=== PATIENT | male | born 1960 | race Caucasian/White ===

== ENCOUNTER 2024-12-02 09:06 | Outpatient (CLI) | payer OTHER, MEDICARE, SELFPAY ==
[2024-12-02 19:28] LABS: Alanine Aminotransferase 25 U/L (6-50); Albumin Level 4.6 g/dL (3.5-5.1); Alkaline Phosphatase 119 U/L (38-126); Anion Gap 5 mmol/L (4-12); Aspartate Amino Transferase 56 U/L (17-59); Bilirubin,Total 0.7 mg/dL (0.2-1.3); Blood Urea Nitrogen 13 mg/dL (9-20); Calcium 9.9 mg/dL (8.4-10.2); Carbon Dioxide 24 mmol/L (22-30); Chloride 106 mmol/L (98-107); Cholesterol 214 mg/dL (0-200); Estimated Glomerular Filt Rate > 60; Glucose 104 mg/dL (65-110); HDL Direct 45 mg/dL; Potassium 3.9 mmol/L (3.4-5.0); Sodium 135 mmol/L (137-145); Total Protein 8.2 g/dL (6.3-8.2); Triglycerides 232 mg/dL (<150)
[2024-12-02 19:45] LABS: MALB Creatinine Ratio 14.0 mg/g (0-30)
[2024-12-02 19:48] LABS: Hemoglobin A1C 5.8 % (<5.7)
[2024-12-02 20:03] LABS: Prostate Specific Antigen 0.6 ng/mL (< OR = 4.0); Thyroid Stimulating Hormone 6.450 uIU/mL (0.465-4.680)
== END 2024-12-02 09:07 | disposition home or self-care (01) ==
PROVIDERS: PCP Nurse Practitioner Adult Health; Visit Provider Nurse Practitioner Adult Health
DX: Z12.5 Encounter for screening for malignant neoplasm of prostate (principal); E11.9 Type 2 diabetes mellitus without complications; E07.9 Disorder of thyroid, unspecified
CPT/HCPCS: 36415; 80053; 80061; 82043; 82565; 83036; 84153; 84443; G0103

== ENCOUNTER 2025-01-17 08:52 | Outpatient (CLI) | payer OTHER, MEDICARE, SELFPAY ==
[2025-01-17 19:11] LABS: Thyroid Stimulating Hormone 0.085 uIU/mL (0.465-4.680)
== END 2025-01-17 08:53 | disposition home or self-care (01) ==
LOC: ANHBWCLAB 08:55
PROVIDERS: PCP Nurse Practitioner Adult Health; Visit Provider Nurse Practitioner Adult Health
DX: E07.9 Disorder of thyroid, unspecified (principal)
CPT/HCPCS: 36415; 84443

== ENCOUNTER 2025-03-15 08:34 | Outpatient (CLI) | payer OTHER, SELFPAY ==
--- OUTSIDE RECORDS SUMMARY | 2025-03-15 08:50 | XMS_ITS | Clinical Summary ---
Author Organization [facility] Address [facility] [place] [address] Care Team Providers Care Seedling Sorter Name Role Phone Tea Serrato NP Primary Care Provider [phone] Romulo Spears MD Unavailable [phone] Allergies Active Allergy Reactions Criticality Noted Date Comments Iodine Swelling 04/18/2016 Medications levothyroxine 200 MCG tablet Take 200 mcg by mouth daily. 5 04/03/2016 Active pravastatin 40 MG tablet Take 1 tablet (40 mg total) by mouth daily. 04/18/2016 Active Doxycycline Hyclate (DORYX) 200 MG Tab EC Take 1 tablet by mouth daily. 04/18/2016 Active Active Problems Problem Noted Date Diagnosed Date Cardiac murmur 04/01/2016 Overview (04/16/2016): new Hyperlipidemia Family History Medical History Relation Comments Heart Attack Mother Family history of ischemic h eart disease and other diseases of the circulatory system. 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 Not on file Not on file Last Filed Vital Signs Vital Sign Reading Time Taken Comments Blood Pressure 150/90 04/18/2016 11:28 AM DISK RECORDIST Pulse 86 04/18/2016 11:28 AM DISK RECORDIST Temperature - - Respiratory Rate - - Oxygen Saturation - - Inhaled Oxygen Concentration - - Weight 95.3 kg (210 lb) 04/18/2016 11:28 AM DISK RECORDIST Height 176.5 cm (5' 9.5) 04/18/2016 11:28 AM CS T Body Mass Index 30.57 04/18/2016 11:28 AM DISK RECORDIST Plan of Treatment Health Maintenance Due Date Last Done Comments Colorectal Cancer Screening Colonoscopy (10 Years) 1959 Hepatitis C 1977 DTaP, Tdap and Td Vaccines ( 1 - Tdap) 1978 Pneumococcal Vaccine: 50+ Ye ars (1 of 1 - PCV) 2009 Zoster Vaccines (1 of 2) 2009 COVID-19 Vaccine (1 - 2024-2 6 season) 2025 Influenza Adult (#1) 2025 RSV Immunization or 60+ Years (1 - 1-dose 75+ series) 2034 Hepatitis A Vaccines Aged Out No long er eligible based on patient's age to complete this topic Meningococcal B Vaccine Aged Out No l onger eligible based on patient's age to complete this topic Meningococcal Vaccine Aged Out No lucila julian eligible based on patient's age to complete this topic RSV Immunizations Under 20 Months Aged Out No longer eligible based on patient's age to complete this topic Insurance [facility] Care Teams Seedling Sorter Relationship Specialty Start Date End Date Tea Serrato NP [address] [place] [address] PCP - General NURSE PRACTITIONER 10/04/15 Roumlo Spears MD [facility]. [address] [address] [place] Bookstore Clerk CARDIOVASCULAR DISEASE 10/04/15
--- OUTSIDE RECORDS SUMMARY | 2025-03-15 08:50 | XMS_ITS | Encounter Summary ---
Author Organization [facility] Address [facility] [place] [address] Care Team Providers Care Carbon Setter Name Role Phone Tea Serrato NP Primary Care Provider [phone] Romulo Spears MD Unavailable [phone] Encounter Details Date Type Department Care Team (Late st Contact Info) Description 04/22/2016 Abstract [facility] AT [address] [address] [place] Social History Tobacco Use Types Packs/Day Years Used Date Smoking Tobacco: Never Smokeless Tobacco: Never Alcohol Use Standard Drinks/Week Comments Yes 0 (1 standard drink = 0.6 oz pur e alcohol) rare Sex and Gender Information Value Date Recorded Sex Assigned at Not on file Legal Sex Male 9:54 AM CASKET UPHOLSTERER Gender Identity Not on file Sexual Orientation Not on file 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 Not on file Not on file documented as of this encounter Plan of Treatment Not on file documented as of this encounter Procedures Procedure Name Priority Date/Time Associated Diagnosis Comments BASIC METABOLIC PANEL Routine 04/01/2016 LIPID PANEL Routine 04/01/2016 HEPATIC FUNCTION PANEL Routine 04/01/2016 THYROXINE, FREE (FT4) Routine 04/01/2016 THYROID STIM HORMONE TSH Routine 04/01/2016 documented in this encounter Results * HEPATIC FUNCTION PANEL (04/01/2016) ALBUMIN S/P/B 4.4 3.5 - 5.0 ALKALINE PHOSPHATASE S/P/B 108 ALT 27 AST 26 BILIRUBIN TOTAL S/P/B 0.9 TOTAL PROTEIN S/P/B 7.3 GLOBULIN 2.9 04/01/2016 us Doc [facility] Final Result * BASIC METABOLIC PANEL (04/01/2016) SODIUM S/P/B 144 POTASSIUM S/P/B 4.0 CO2 27 CHLORIDE S/P/B 105 GLUCOSE 100 CALCIUM S/P/B 9.7 BUN 16 CREATININE S/P/B 0.86 EGFR NON-AFR. AMER. >60 04/01/2016 us Doc [facility] Final Result * THYROXINE, FREE (FT4) (04/01/2016) Pathologist [facility] FREE T4 0.96 04/01/2016 us Doc [facility] Final Result * THYROID STIM HORMONE, TSH (04/01/2016) Pathologist [facility] TSH 8.060 04/01/2016 us Doc [facility] Final Result * LIPID PANEL (04/01/2016) Pathologist [facility] CHOLESTEROL 223 HDL 57 TRIGLYCERIDES 180 LDL (CALCULATED) 130 04/01/2016 us Doc [facility] Edited Resul t - Final documented in this encounter Visit Diagnoses Not on filedocumented in this encounter Care Teams Carbon Setter Relationship Specialty Start Date End Date Tea Serrato NP [address] [place] [address] PCP - General NURSE PRACTITIONER 10/04/15 Romulo Spears MD [facility]. [address] [address] [place] Proof Press Operator CARDIOVASCULAR DISEASE 10/04/15 documented as of this encounter
--- OUTSIDE RECORDS SUMMARY | 2025-03-15 08:50 | XMS_ITS | Encounter Summary ---
Author Organization [facility] Address [address] [place] [address] Care Team Providers Care Rn Spine Name Role Phone Unavailable Primary Care Provider Unavailabl e Encounter Details Date Type Department Care Team (Late st Contact Info) Description 02/02/2025 Lab Requisition [facility] - DermPath Lab [address] [facility] [place] [phone] Antonia Vu MD [address] [facility] [address] [place] [address] Neoplasm of uncertain behavior of skin Social History Tobacco Use Types Packs/Day Years Used Date Smoking Tobacco: Never Assessed Sex and Gender Information Value Date Recorded Sex Assigned at Not on file Legal Sex Male 4:07 PM CDT Gender Identity Not on file Sexual Orientation Not on file documented as of this encounter Plan of Treatment Not on file documented as of this encounter Procedures Procedure Name Priority Date/Time Associated Diagnosis Comments DERMATOPATHOLOGY Routine 02/02/2025 12:3 0 PM CDT Neoplasm of uncertain behavior of skin documented in this encounter Results * DERMATOPATHOLOGY (02/02/2025 12:30 PM CDT) Case Report Dermatopathology Report Case: [id number] Authorizing Provider: Antonia Vu MD Collected: 02/02/2025 12:30 PM Ordering Location: [facility] Physician [facility] - Received: 02/03/2025 11:59 AM DermPath Lab Pathologist: Tash Molina MD Specimens: A) - Skin, left thigh B) - Skin, left jawline 5 3:44 PM CDT DERMATOPATHOLOGY LABORATORY Final Diagnosis Specimen A. SKIN, left thigh: SEBORRHEIC KERATOSIS, MACULAR (L82.1) Specimen B. 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 The specimen consists of a shave biopsy measuring 30q06n5 mm. Jar 0. Specimen B: Received is one formalin filled container labeled with the patient's name and designated left jawline. The specimen consists of a shave biopsy measuring 6x5x1 mm. Jar 0. 3:44 PM CDT DERMATOPATHOLOGY LABORATORY Microscopic Description Specimen A. SKIN, left thigh: Sections show a relatively broad, flat proliferation of small keratinocytes. The surface is gently papillated, and there is increased basilar pigmentation. Specimen B. SKIN, left jawline: There are nests of cytologically bland melanocytes within the dermis that mature with depth. 3:44 PM CDT DERMATOPATHOLOGY LABORATORY Disclaimer An external and internal positive and negative controls are appropriate for the histochemical, immunohistochemical and immunofluorescence stain(s) in this case (if any), except where stated explicitly. The performance characteristics of the stain(s) cited in this report were developed and its performance characteristic determined by the Dermatopathology Laboratory at [facility], directed by Dr. Zunilda Dupont. These tests need not be, and therefore are not, approved by the [place] Food and Drug Administration. The tests are used for clinical purposes. Billing Codes Specimen Charges Stain Charges 52522 16924 1 1 3:44 PM CDT DERMATOPATHOLOGY LABORATORY Embedded Images 3:44 PM CDT DERMATOPATHOLOGY LABORATORY Pathology/Cytology TISSUE SPECIMEN FROM SKIN / Unknown 02/02/2025 12:30 PM CDT 02/03/2025 11:59 AM CDT Miscellaneous samples (specimen) TISSUE SPECIMEN FROM SKIN / Unknown 02/02/2025 12:30 PM CDT 02/03/2025 11:59 AM CDT us Antonia Vu MD LAB - PATHOLOGY/CYTOLOGY ORD ERABLES Final Result DERMATOPATHOLOGY LABORATORY [facility] - Department of Dermatology [facility] [address] [place] [address], [address] [phone] documented in this encounter Visit Diagnoses Diagnosis Neoplasm of uncertain behavior of skin documented in this encounter
--- OUTSIDE RECORDS SUMMARY | 2025-03-15 08:50 | XMS_ITS | Clinical Summary ---
Author Organization [facility] Address [address] [place] [address] Care Team Providers Care Network Technician Name Role Phone Unavailable Primary Care Provider Unavailabl e Source Comments [facility],non-owned Affiliates and Associated Physician Practices is amultiple site organization consisting of ambulatory clinics and hospital sitesin [place], [place], [place] and [place]. This disclosure is being madepursuant to the Care Everywhere program and may not contain all information available regarding this patient. Last updated 18.[facility] Encounters Date Type Department Care Team Description 02/02/2025 Lab Requisition [facility] - DermPath Lab [address] [facility] [place] [phone] Antonia Vu MD Neoplasm of uncertain behavior of skin from Last 3 Months Social History Tobacco Use Types Packs/Day Years Used Date Smoking Tobacco: Never Assessed Sex and Gender Information Value Date Recorded Sex Assigned at Not on file Legal Sex Male 4:07 PM CDT Gender Identity Not on file Sexual Orientation Not on file Plan of Treatment Health Maintenance Due Date Last Done Comments COLOGUARD (AGES 45-75) - COL ON CA SCREENING 1959 COLON MONITORING 1959 COLONOSCOPY - COLON CA SCREENING 1959 CT COLONOGRAPHY - COLON CA SCREENING 1959 Colorectal Cancer Screening 1959 FIT - COLON CA SCREENING 1959 FLEX SIG - COLON CA SCREENING 1959 LIPID TESTING 1959 HEPATITIS C SCREENING 01/14/1977 DTAP/TDAP/TD VACCINES (1 - Tdap) 1978 PNEUMOCOCCAL VACCINE 50+ (1 of 1 - PCV) 2009 ZOSTER VACCINE (1 of 2) 2009 DEPRESSION SCREENING 05/05/2024 COVID-19 VACCINE (1 - 2023-2 5 season) 2025 INFLUENZA VACCINE (#1) 2025 Respiratory Syncytial Virus (RSV) Vaccine Pt: or over 60 yrs (1 - 1-dose 75+ series) 2034 HEPATITIS B VACCINE Aged Out No longe r eligible based on patient's age to complete this topic HIB VACCINE Aged Out No longer eligi ble based on patient's age to complete this topic HPV VACCINE Aged Out No longer eligi ble based on patient's age to complete this topic MENINGOCOCCAL (Group B) VACC INE SHARED DECISION-MAKING Aged Out No longer eligibl e based on patient's age to complete this topic MENINGOCOCCAL GROUPS A/C/Y/W VACCINE Aged Out No longer eligible b ased on patient's age to complete this topic Procedures Procedure Name Priority Date/Time Associated Diagnosis Comments DERMATOPATHOLOGY Routine 02/02/2025 12:3 0 PM CDT Neoplasm of uncertain behavior of skin from Last 3 Months Results * DERMATOPATHOLOGY (02/02/2025 12:30 PM CDT) Case Report Dermatopathology Report Case: [id number] Authorizing Provider: Antonia Vu MD Collected: 02/02/2025 12:30 PM Ordering Location: [facility] - Received: 02/03/2025 11:59 AM DermPath Lab Pathologist: Tash Molina MD Specimens: A) - Skin, left thigh B) - Skin, left jawline 3:44 PM CDT DERMATOPATHOLOGY LABORATORY Final Diagnosis [...] specimen consists of a shave biopsy measuring 48d61b6 mm. Jar 0. Specimen B: Received is [...] characteristic determined by the Dermatopathology Laboratory at [facility], directed by Dr. Zunilda Dupont. These tests need not be, and therefore are not, approved by the [place] Food and Drug Administration. The tests are used for clinical purposes. Billing Codes Specimen Charges Stain Charges 20427 96124 1 1 3:44 PM CDT DERMATOPATHOLOGY LABORATORY Embedded Images 3:44 PM CDT DERMATOPATHOLOGY LABORATORY Pathology/Cytology TISSUE SPECIMEN FROM SKIN / Unknown 02/02/2025 12:30 PM CDT 02/03/2025 11:59 AM CDT Miscellaneous samples (specimen) TISSUE SPECIMEN FROM SKIN / Unknown 02/02/2025 12:30 PM CDT 02/03/2025 11:59 AM CDT us Antonia Vu MD LAB - PATHOLOGY/CYTOLOGY ORD ERABLES Final Result DERMATOPATHOLOGY LABORATORY [facility] - Department of Dermatology [address] [place] [address], [facility] [phone] from Last 3 Months Insurance [facility] MEDICARE
[2025-03-15 19:44] LABS: Thyroid Stimulating Hormone 0.530 uIU/mL (0.465-4.680)
== END 2025-03-15 08:35 | disposition home or self-care (01) ==
PROVIDERS: PCP Nurse Practitioner Adult Health; Referring Provider Dermatology; Visit Provider Nurse Practitioner Adult Health
DX: E07.9 Disorder of thyroid, unspecified (principal)
CPT/HCPCS: 36415; 84443